=== PATIENT | male | born 2005 | race Caucasian/White ===

== ENCOUNTER 2023-11-04 20:27 | Emergency (ER) | payer OTHER, SELFPAY ==
[2023-11-04 20:40] VITALS: BP 150/90; PULSE 94; RESP 16; TEMP 36.7; O2SAT 98; BMI 30.6
[2023-11-04] MEDS: TETANUS/DIPHTH/PERTUSSIS 0.5 ML SYRINGE IM (22:00)
--- NOTE | 2023-11-04 23:39 | ED_ITS ---
HPI - General Adult General Date Seen: 11/04/23 Chief complaint: Laceration/Wound Stated complaint: cut on forehead Time Seen by Provider: 11/04/23 21:06 History of Present Illness HPI narrative: The this is a generally healthy 18-year-old male presenting to the ER today with a vertical laceration on the right side of his forehead. He was playing basketball this evening when he accidentally bumped his forehead against a pole. No loss of consciousness. No foreign body in the wound. He suffered laceration with dark red bleeding from his forehead the bleeding was controlled by direct pressure prior to arrival. He is generally healthy. No history of diabetes or immunosuppression. No anticoagulation. Last tetanus shot was 2015. No headache. No loss of consciousness. No blurry vision. No nausea vomiting. Normal mental status. Normal memory. Related Data Home Medications ?Medication ?Instructions ?Recorded ?Confirmed No Known Home Medications 11/04/23 11/04/23 Allergies Allergy/AdvReac Type Severity Reaction Status Date / Time No Known Drug Allergies [facility]ergy Verified 11/04/23 20:42 [facility] Social History Smoking Status: Never smoker How often do you have a drink containing alcohol: never AUDIT-C Alcohol total score: 0 Non-prescribed substance use: denies use Exam 2 Narrative: Exam Narrative: Constitutional: Appears well-developed and well-nourished. Active. Non-toxic appearing. HENT: Head: There is a 2 cm linear laceration on the patient's right forehead beginning at the upper border of the eyebrow and extending superiorly. No foreign body. Wound edges are gaping 2-3 mm.. No signs of injury. No depressed skull fracture, Raccoon Eyes, Bell's sign, or hemotympanum. Face normal. TMs normal Nose: No nasal discharge. Mouth/Throat: Mucous membranes are moist. Pharynx is normal. Tonsils symmetric. Uvula midline. Airway patent. Eyes: Conjunctivae normal and EOM are normal. Pupils are equal, round, and reactive to light. Right eye exhibits no discharge. Left eye exhibits no discharge. No icterus. Neck: Normal range of motion. Neck supple. No adenopathy. No stridor. Cardiovascular: Normal rate and regular rhythm. No murmur heard. No murmurs, rubs, or gallops. Brisk capillary refill Pulmonary/Chest: Effort normal. No stridor. No respiratory distress. No wheezes.No rhonchi. No rales. No retractions. Abdominal: Soft. Bowel sounds are normal. No distension. No mass. There is no tenderness. There is no rebound and no guarding. Musculoskeletal: Normal range of motion. No edema. No tenderness. No deformity. Neurological: Alert. Normal strength. No cranial nerve deficit or sensory deficit. Coordination normal. GCS eye subscore is 4. GCS verbal subscore is 5. GCS motor subscore is 6. Memory normal. No focal deficits. Alert and oriented. Skin: Skin is warm. No rash noted. Const: Vital Signs, click to edit/add: Vital Signs - 24 hr 11/04/23 20:40 Temperature 98.1 F Pulse Rate [Pulse Oximeter] 94 Respiratory Rate 16 Blood Pressure [Ri t Upper Arm] 150/90 H Pulse Oximetry 98 Oxygen Delivery Me thod Room Air Course Vital Signs Vital signs: Initial Vital Signs Temperature 98.1 F 11/04/23 20:40 Temperature Source Temporal Artery Scan 11/04/23 20:40 Pulse Rate 94 11/04/23 20:40 Respiratory Rate 16 11/04/23 20:40 Blood Pressure 150/90 H 11/04/23 20:40 Blood Pressure Mean 110 H 11/04/23 20:40 Blood Pressure Position Sitting 11/04/23 20:40 Pulse Oximetry 98 11/04/23 20:40 Oxygen Delivery Method Room Air 11/04/23 20:40 Vital Signs Temperature 98.1 F 11/04/23 20:40 Pulse Rate 94 11/04/23 20:40 Respiratory Rate 16 11/04/23 20:40 Blood Pressure 150/90 H 11/04/23 20:40 Pulse Oximetry 98 11/04/23 20:40 Oxygen Delivery Method Room Air 11/04/23 20:40 Temperature 98.1 F 11/04/23 20:40 Pulse Rate 94 11/04/23 20:40 Respiratory Rate 16 11/04/23 20:40 Blood Pressure 150/90 H 11/04/23 20:40 Pulse Oximetry 98 11/04/23 20:40 Oxygen Delivery Method Room Air 11/04/23 20:40 Medications Administered Medications: Discontinued Medications Generic Name Dose Route Start Last Admin Trade Name Freq PRN Reason Stop Dose Admin Diphtheria/Tetanus/Acell Pertussis 0.5 ml 11/04/23 22:00 11/04/23 22:00 Tetanus/Diphth/Pertussis 0.5 Ml Syringe IM 11/04/23 22:01 0.5 ml .ONCE ONE Administration Medical Decision Making MDM Narrative Medical decision making narrative: Findings and exam are consistent with an uncomplicated laceration which was repaired as noted above. There is no evidence at this time to suggest any associated fracture or foreign body. There is no evidence to suggest intracranial injury and patient is neurologically in tact. The patient is to f ollow up for suture removal as instructed in 5-7 days. Indications to seek urgent reevaluation and signs of infection (including but not limited to increasing pain, redness, swelling, fevers, and drainage) were reviewed. Tetanus is updated tonight. This is a clean and noncontaminated wound in which prophylactic antibiotics are not indicated. An understanding of the discharge instructions and need for follow up were verbally confirmed. Discharge Plan Discharge Clinical Impression: Laceration Patient Disposition: Home, Self-Care Condition: Stable Instructions: Facial Laceration (ED) Additional Instructions: As we discussed, please follow-up with your doctor in 5-7 days for suture removal. Come back to the ER right away if you have any concerns especially redness, swelling of the wound, pus draining from the wound, or any other problems. Prescriptions: No Action No Known Home Medications Stand Alone Forms: MyHealth Info Instructions Procedures Laceration Right forehead: Pre procedure diagnosis: Right forehead laceration Verification/time out: correct patient and correct site Site: face Side (If applicable): right Size (cm): 2 Description: linear Depth: simple, single layer Local Anesthetic: lidocaine 1% and with epi Amount of anesthesia used (mL): 2 Pre-repair: wound explored Skin layer closed with: nylon Size (cm): 6-0 Number of sutures: 7 Technique: simple, interrupted
== END 2023-11-04 22:15 | disposition home or self-care (01) ==
PROVIDERS: Emergency Provider Emergency Medicine
DX: S01.81XA Laceration without foreign body of other part of head, initial encounter (principal); W22.8XXA Striking against or struck by other objects, initial encounter; Y93.67 Activity, basketball
CPT/HCPCS: 12001; 90471; 90715; 99282; 99283